=== PATIENT | female | born 1950 | race Caucasian/White ===

== ENCOUNTER 2016-12-16 16:12 | Observation (INO) | payer MEDICARE, BC ==
[~2016-12-16] VITALS: Ht 167.6 cm; Wt 70.0 kg
[~2016-12-16 16:12] MED LIST: ATEN-100 PO; DEXA6TAB PO; LOVA1TAB47 PO; OXYC-360 PO; PRIL20CA PO
[2016-12-16 16:30] VITALS: BP 163/77; PULSE 61; RESP 17; TEMP 98; O2SAT 97
[2016-12-16 16:35] VITALS: BP 163/77; PULSE 66; RESP 18; O2SAT 100
[2016-12-16] MEDS ORDERED: OMEP20TA PO (16:39)
[2016-12-16] MEDS ORDERED: ATEN25TA PO (16:39)
[2016-12-16] MEDS ORDERED: LISI-515 PO (16:39)
[2016-12-16] MEDS ORDERED: LOVA20TA PO (16:39)
[2016-12-16] MEDS ORDERED: SODIUM CHLORIDE 0.9% FLUSH 10 ML FLUSH IVF PRN (16:45)
--- NOTE | 2016-12-16 16:50 | PD ---
HPI Chief Complaint: Chest Pain Time Seen by Provider: 16:23 Travel History International Travel<30 days: No Contact w/Intl Traveler<30days: No Traveled to known affect area: No History of Present Illness HPI The patient is a 66-year-old female who presents to the emergency department for chest pain. The patient states she was lying in bed earlier today when she developed chest pain. The chest pain was located over the right aspect of her chest, just lateral to the sternum, radiated up to the right side of the jaw and right aspect of the neck. The patient notes her last several days she has felt a sensation to the right aspect of her face and her right arm that feels like "an air conditioner blowing on my face and arm ". The patient states the chest pain was sharp, lasted 20 minutes, there are no alleviating or exacerbating factors, and it was associated with mild shortness of breath. She did complain of mild nausea with a sensation to "burp", but denied any vomiting. She denied any diaphoresis. The patient does have a history of hypertension, hyperlipidemia, and significant family medical history for early CAD. The patient states her brother had a heart attack at age 31. The patient is never had a cardiac catheterization, had a treadmill stress test approximately 9 years ago. The patient denies any tobacco use, states she has a history of "borderline" diabetes. PFSH Past Medical History Cancer: Yes (TONGUE ) High Cholesterol: Yes Glaucoma: No Hepatitis: No Hiatal Hernia: No Hypertension: Yes Medical other: No Thyroid Disease: No ?: Not Past Surgical History Gynecologic Surgery: Yes (UNILAT. OOPHORECTOMY) Pacemaker: No Tonsillectomy: Yes Other Surgery: Yes (TONGUE SURGERY) Family History Family Myocardial Infarction: Yes Social History Alcohol Use: Yes (DAILY) Tobacco Use: Yes (QUIT 20 YRS) Substance Use: No Allergies-Medications (Allergen,Severity, Reaction): Coded Allergies: Penicillin (Unverified Allergy, Severe, 12/16/16) Reported Meds & Prescriptions Reported Meds & Active Scripts Active Reported Omeprazole 20 Mg Tab 20 Mg PO DAILY Lisinopril 20 Mg Tab 20 Mg PO DAILY Lovastatin 20 Mg Tab 20 Mg PO DAILY Atenolol 25 Mg Tab 25 Mg PO DAILY Review of Systems Except as stated in HPI: all other systems reviewed are Neg General / Constitutional: No: Fever HENT: No: Lightheadedness Cardiovascular: Positive: Chest Pain or Discomfort, No: Diaphoresis Respiratory: Positive: Shortness of Breath Gastrointestinal: Positive: Nausea, No: Vomiting Musculoskeletal: No: Weakness, Edema Neurologic: No: Dizziness Physical Exam Narrative GENERAL: Awake, alert, 66 year-old female who appears her stated age and is in no acute respiratory distress. SKIN: Focused skin assessment warm/dry. HEAD: Atraumatic. Normocephalic. EYES: Pupils equal and round. No scleral icterus. No injection or drainage. ENT: No nasal bleeding or discharge. Mucous membranes pink and moist. NECK: Trachea midline. No JVD. CARDIOVASCULAR: Regular rate and rhythm. No murmur appreciated. RESPIRATORY: No accessory muscle use. Clear to auscultation. Breath sounds equal bilaterally. GASTROINTESTINAL: Abdomen soft, non-tender, nondistended. No rebound tenderness. MUSCULOSKELETAL: No obvious deformities. No clubbing. No cyanosis. No edema. Positive right radial pulse. NEUROLOGICAL: Awake and alert. No obvious cranial nerve deficits. Motor grossly within normal limits. Normal speech. Sensation is symmetric on the face and arms bilaterally. PSYCHIATRIC: Appropriate mood and affect; insight and judgment normal. Data Data Last Documented VS Vital Signs Date Time Temp Pulse Resp B/P Pulse Ox O2 Delivery O2 Flow Rate FiO2 12/16/16 17:10 98 Room Air 12/16/16 17:10 20 12/16/16 16:35 66 12/16/16 16:35 163/77 12/16/16 16:30 98.0 Orders Electrocardiogram (12/16/16 ) Electrocardiogram (12/16/16 16:44) Ckmb (Isoenzyme) Profile (12/16/16 16:44) Complete Blood Count With Diff (12/16/16 16:44) Comprehensive Metabolic Panel (12/16/16 16:44) Magnesium (Mg) (12/16/16 16:44) Prothrombin Time / Inr (Pt) (12/16/16 16:44) Act Partial Throm Time (Ptt) (12/16/16 16:44) Troponin I (12/16/16 16:44) Lipase (12/16/16 16:44) Chest, Single Ap (12/16/16 16:44) Ecg Monitoring (12/16/16 16:44) Bilateral Bp Monitoring (12/16/16 16:44) Iv Access Insert/Monitor (12/16/16 16:44) Oximetry (12/16/16 16:44) Oxygen Administration (12/16/16 16:44) Sodium Chloride 0.9% Flush (Ns Flush) (12/16/16 16:45) CKMB (12/16/16 16:47) CKMB% (12/16/16 16:47) Admit Order (Ed Use Only) (12/16/16 18:03) Labs Laboratory Tests Test 12/16/16 16:47 White Blood Count 4.8 TH/MM3 Red Blood Count 4.61 MIL/MM3 Hemoglobin 13.5 GM/DL Hematocrit 40.0 % Mean Corpuscular Volume 86.7 FL Mean Corpuscular Hemoglobin 29.3 PG Mean Corpuscular Hemoglobin 33.8 % Concent Red Cell Distribution Width 13.4 % Platelet Count 236 TH/MM3 Mean Platelet Volume 7.9 FL Neutrophils (%) (Auto) 51.3 % Lymphocytes (%) (Auto) 37.0 % Monocytes (%) (Auto) 8.9 % Eosinophils (%) (Auto) 2.2 % Basophils (%) (Auto) 0.6 % Neutrophils # (Auto) 2.4 TH/MM3 Lymphocytes # (Auto) 1.8 TH/MM3 Monocytes # (Auto) 0.4 TH/MM3 Eosinophils # (Auto) 0.1 TH/MM3 Basophils # (Auto) 0.0 TH/MM3 CBC Comment DIFF FINAL Differential Comment Prothrombin Time 10.7 SEC Prothromb Time International 1.0 RATIO Ratio Activated Partial 29.9 SEC Thromboplast Time Sodium Level 139 MEQ/L Potassium Level 4.2 MEQ/L Chloride Level 101 MEQ/L Carbon Dioxide Level 27.7 MEQ/L Anion Gap 10 MEQ/L Blood Urea Nitrogen 12 MG/DL Creatinine 0.69 MG/DL Estimat Glomerular Filtration 85 ML/MIN Rate Random Glucose 88 MG/DL Calcium Level 9.8 MG/DL Magnesium Level 2.4 MG/DL Total Bilirubin 0.6 MG/DL Aspartate Amino Transf 22 U/L (AST/SGOT) Alanine Aminotransferase 30 U/L (ALT/SGPT) Alkaline Phosphatase 71 U/L Total Creatine Kinase 101 U/L Creatine Kinase MB 0.5 NG/ML Troponin I LESS THAN 0.02 NG/ML Total Protein 7.7 GM/DL Albumin 4.2 GM/DL Lipase 144 U/L Exceptions Acute Myocardial Infarction ASA Not Given on Arrival: Already Given by EMS MDM Medical Decision Making Medical Screen Exam Complete: Yes Emergency Medical Condition: Yes Medical Record Reviewed: Yes Interpretation(s) EKG reveals normal sinus rhythm with a rate of 66. No ischemic changes or ectopy noted. Last Impressions Chest X-Ray 12/16/16 1644 Signed Impressions: Service Date/Time: November 16:57 - CONCLUSION: No acute disease. Venancio Quezada MD Laboratory Tests Test 12/16/16 16:47 White Blood Count 4.8 TH/MM3 Red Blood Count 4.61 MIL/MM3 Hemoglobin 13.5 GM/DL Hematocrit 40.0 % Mean Corpuscular Volume 86.7 FL Mean Corpuscular Hemoglobin 29.3 PG Mean Corpuscular Hemoglobin 33.8 % Concent Red Cell Distribution Width 13.4 % Platelet Count 236 TH/MM3 Mean Platelet Volume 7.9 FL Neutrophils (%) (Auto) 51.3 % Lymphocytes (%) (Auto) 37.0 % Monocytes (%) (Auto) 8.9 % Eosinophils (%) (Auto) 2.2 % Basophils (%) (Auto) 0.6 % Neutrophils # (Auto) 2.4 TH/MM3 Lymphocytes # (Auto) 1.8 TH/MM3 Monocytes # (Auto) 0.4 TH/MM3 Eosinophils # (Auto) 0.1 TH/MM3 Basophils # (Auto) 0.0 TH/MM3 CBC Comment DIFF FINAL Differential Comment Prothrombin Time 10.7 SEC Prothromb Time International 1.0 RATIO Ratio Activated Partial 29.9 SEC Thromboplast Time Sodium Level 139 MEQ/L Potassium Level 4.2 MEQ/L Chloride Level 101 MEQ/L Carbon Dioxide Level 27.7 MEQ/L Anion Gap 10 MEQ/L Blood Urea Nitrogen 12 MG/DL Creatinine 0.69 MG/DL Estimat Glomerular Filtration 85 ML/MIN Rate Random Glucose 88 MG/DL Calcium Level 9.8 MG/DL Magnesium Level 2.4 MG/DL Total Bilirubin 0.6 MG/DL Aspartate Amino Transf 22 U/L (AST/SGOT) Alanine Aminotransferase 30 U/L (ALT/SGPT) Alkaline Phosphatase 71 U/L Total Creatine Kinase 101 U/L Creatine Kinase MB 0.5 NG/ML Troponin I LESS THAN 0.02 NG/ML Total Protein 7.7 GM/DL Albumin 4.2 GM/DL Lipase 144 U/L Differential Diagnosis Differential diagnosis includes ACS, angina, esophageal spasm, GERD, pulmonary embolism, neuropathy, biliary colic, pancreatitis, gastritis. Narrative Course IV was established, labs are drawn and sent, and the patient was placed on cardiac telemetry monitoring and continuous pulse oximetry monitoring. EKG was ordered and interpreted. Chest x-ray was obtained. The patient took aspirin prior to arrival by EMS and was pain-free upon arrival, therefore, no nitroglycerin sublingual was administered. The chest x-ray was unremarkable. EKG is unremarkable, no ischemic changes noted. Initial troponin is negative. Patient does have right sided chest pain that radiates to the right jaw and right arm, mild shortness of breath, and a history of hypertension, hyperlipidemia, and significant family medical history. Her symptoms were not exertional. As she does have atypical symptoms with multiple risk factors, patient will be 23 hour observation to [facility], she is a moderate risk candidate. The patient is comfortable with this plan of care. The patient will be kept nothing by mouth after midnight, serial cardiac enzymes will be ordered. Physician Communication Physician Communication The patient will be a 23 hour observation to the [facility] for serial cardiac enzymes and further evaluation by cardiology for possible stress test. Diagnosis Primary Impression: Chest pain Qualified Code: R07.9 - Chest pain, unspecified type Admitting Information Admitting Physician Requests: Observation Condition: Stable Iban Alvarado MD Dec 16, 2016 16:50
[2016-12-16 17:00] LABS: AUTOMATED NEUTROPHIL # 2.4 TH/MM3 (1.8-7.7); BASOPHIL % 0.6 % (0.0-2.0); EOSINOPHIL # 0.1 TH/MM3 (0-0.4); EOSINOPHIL % 2.2 % (0.0-4.0); HEMO FLAGS DIFF FINAL; LYMPHOCYTE # 1.8 TH/MM3 (1.0-4.8); MEAN CELL VOLUME 86.7 FL (80.0-100.0); MEAN CORPUSCULAR HEMOGLOBIN 29.3 PG (27.0-34.0); MEAN CORPUSCULAR HGB CONC 33.8 % (32.0-36.0); MONO % 8.9 % (0.0-8.0); NEUT % 51.3 % (16.0-70.0); PLATELET COUNT 236 TH/MM3 (150-450); RED BLOOD COUNT 4.61 MIL/MM3 (4.00-5.30); RED CELL DISTRIBUTION WIDTH 13.4 % (11.6-17.2); WHITE BLOOD COUNT 4.8 TH/MM3 (4.0-11.0)
[2016-12-16 17:10] VITALS: RESP 20; O2SAT 98
[2016-12-16 17:18] LABS: ALT (GPT) 30 U/L (10-53); ANION GAP 10 MEQ/L (5-15); AST (GOT) 22 U/L (15-37); BICARBONATE 27.7 MEQ/L (21.0-32.0); BLOOD UREA NITROGEN 12 MG/DL (7-18); CHLORIDE 101 MEQ/L (98-107); GLOMERULAR FILTRATION RATE 85 ML/MIN (>89); MAGNESIUM 2.4 MG/DL (1.5-2.5); POTASSIUM 4.2 MEQ/L (3.5-5.1); SODIUM (NA) 139 MEQ/L (136-145)
[2016-12-16 17:23] LABS: ALKALINE PHOSPHATASE 71 U/L (45-117); CREATINE KINASE 101 U/L (26-192); TOTAL BILIRUBIN ADULT 0.6 MG/DL (0.2-1.0)
[2016-12-16 17:28] LABS: APTT (PATIENT) 29.9 SEC (24.3-30.1); PROTHROMBIN TIME - PATIENT 10.7 SEC (9.8-11.6)
--- NOTE | 2016-12-16 17:31 | RADRPT ---
EXAM DATE/TIME: 12/16/2016 16:57 [facility] COMPARISON: No previous studies available for comparison. INDICATIONS : Chest pain MEDICAL HISTORY : None. SURGICAL HISTORY : None. ENCOUNTER: Initial ACUITY: 1 day PAIN SCORE: 0/10 LOCATION: Bilateral chest FINDINGS: A single view of the chest demonstrates the lungs to be symmetrically aerated without evidence of mas s, infiltrate or effusion. The cardiomediastinal contours are unremarkable. Osseous structures are intact. CONCLUSION: No acute disease. Venancio Quezada MD on December 16, 2016 at 17:29 Board Certified Radiologist. This report was verified electronically.
[2016-12-16 17:35] LABS: CKMB 0.5 NG/ML (0.5-3.6)
[2016-12-16] MEDS ORDERED: ACETAMINOPHEN 500 MG CPLT PO PRN (18:15)
[2016-12-16] MEDS ORDERED: SODIUM CHLORIDE 0.9% FLUSH 10 ML FLUSH IV FLUSH PRN (18:15)
[2016-12-16] MEDS ORDERED: ACETAMINOPHEN/HYDROcodone 325 MG/7.5 MG TAB PO PRN (18:15)
[2016-12-16] MEDS ORDERED: ONDANSETRON HCL 4 MG/2 ML VIAL IV PRN (18:15)
[2016-12-16] MEDS ORDERED: NITROGLYCERIN 0.4 MG SL 25 TABS/BTL SL PRN (18:15)
[2016-12-16] MEDS ORDERED: MORPHINE SULFATE 4 MG/ML INJ IV PRN (18:15)
[2016-12-16 18:26] VITALS: BP 132/72; PULSE 68; RESP 18; O2SAT 99
[2016-12-16 20:55] LABS: CREATINE KINASE 88 U/L (26-192)
--- NOTE | 2016-12-16 21:00 | EKG ---
Date Performed: 12/16/2016 Time Performed: 16:36:53 PTAGE: 66 years EKG: Sinus rhythm NORMAL ECG NO PREVIOUS TRACING DOCTOR: Ricardo Arzate Interpretating Date/Time 12/16/2016 20:59:20
[2016-12-16 21:32] VITALS: BP 140/80; PULSE 69; RESP 18; TEMP 98.1; O2SAT 97
[2016-12-17 00:55] VITALS: BP 133/76; PULSE 74; RESP 18; O2SAT 97
[2016-12-17 03:14] LABS: CREATINE KINASE 92 U/L (26-192)
[2016-12-17 03:47] VITALS: PULSE 68
[2016-12-17 06:07] VITALS: BP 135/73; PULSE 72; RESP 18; TEMP 97.6; O2SAT 97
[2016-12-17 08:15] VITALS: BP 124/57; PULSE 70; RESP 18; TEMP 97.5; O2SAT 95
[2016-12-17] MEDS ORDERED: PANTOPRAZOLE SOD 20 MG DELAYED RELEASE TAB PO SCH (09:00)
[2016-12-17] MEDS ORDERED: LISINOPRIL 20 MG TAB PO SCH (09:00)
[2016-12-17] MEDS: SODIUM CHLORIDE 0.9% FLUSH 10 ML FLUSH IV FLUSH SCH ×2 (09:00→10:36)
[2016-12-17] MEDS ORDERED: ATENOLOL 25 MG TAB PO SCH (09:00)
[2016-12-17] MEDS ORDERED: ASPIRIN 325 MG TAB PO SCH (09:00)
[2016-12-17] MEDS ORDERED: PRAVASTATIN SOD 20 MG TAB PO SCH (09:00)
--- NOTE | 2016-12-17 09:10 | HHI.HP ---
[facility] Primary Care Physician Moise Razo MD Chief Complaint Chest pain History of Present Illness This is a 66-year-old female that presents to ED via private vehicle to evaluate a right-sided chest discomfort that began yesterday. Patient states that she was awoken at 4:00 yesterday morning with a right-sided sharp chest discomfort. She had a numbing sensation that radiated up her right jaw and down the right arm. There were no weakness in her extremities. No difficulty with speech and she diagnosed any facial asymmetry. The symptoms lasted for 20 minutes and did not recur. She called her primary care physician Dr. Razo who advised her to go to the ED. Patient denies history of CAD. She has had a stress test in the past and states it is many years ago. discomforts. Review of Systems General: Patient denies fevers, chills recent, and recent travel HEENT: Patient denies headache, sore throat, difficulty swallowing. Cardiovascular: Has the chest discomfort as mentioned above. Denies sensation of heart beating rapidly or irregularly. No syncope. Respiratory: Patient was a little short of breath. Denies inspirational chest discomfort. Denies coughing wheezing or hemoptysis. GI: Patient denies nausea, vomiting, diarrhea, abdominal pain, bloody stools. Musculoskeletal: Patient denies joint pain or edema. Denies calf pain or edema. Neurovascular: Patient denies numbness, tingling, weakness in extremities. Denies headache. Endocrine: Denies polyuria and polydipsia. Hematologic: Denies easy bruising. Skin: Denies rash or itching. Past Family Social History Allergies: Coded Allergies: Penicillin (Unverified Allergy, Severe, 12/16/16) Past Medical History Hypertension, hyperlipidemia, GERD. Denies diabetes and CAD. Past Surgical History Oophorectomy, tonsillectomy, and surgery to her tongue to remove cancer. Reported Medications Reported Meds & Active Scripts Active Reported Omeprazole 20 Mg Tab 20 Mg PO DAILY Lisinopril 20 Mg Tab 20 Mg PO DAILY Lovastatin 20 Mg Tab 20 Mg PO DAILY Atenolol 25 Mg Tab 25 Mg PO DAILY Active Ordered Medications Current Medications Medications (Trade) Dose Ordered Sig/Chayo Route Start Time Stop Time Status Last Admin (NS Flush) 2 ml UNSCH PRN IV FLUSH 12/16/16 18:15 (NS Flush) 2 ml BID IV FLUSH 12/16/16 21:00 (Tylenol) 500 mg Q4H PRN PO 12/16/16 18:15 (Cidra 7.5-325 Mg) 1 tab Q4H PRN PO 12/16/16 18:15 (Morphine Inj) 2 mg Q4H PRN IV 12/16/16 18:15 (Zofran Inj) 4 mg Q6H PRN IV 12/16/16 18:15 (Nitrostat Sl) 0.4 mg Q5M PRN SL 12/16/16 18:15 (Aspirin) 325 mg DAILY PO 12/17/16 09:00 (Tenormin) 25 mg DAILY PO 12/17/16 09:00 (Prinivil) 20 mg DAILY PO 12/17/16 09:00 (Pravachol) 20 mg DAILY PO 12/17/16 09:00 (Protonix) 20 mg DAILY PO 12/17/16 09:00 Family History Her father at age 62 of a myocardial infarction. Social History Patient quit smoking 20 years ago. Prior to that she smoked 2 pack of cigarettes per week for about 15 years. She has on average a couple glasses of wine on weekends. Denies illicit drugs. She is retired. She is . Physical Exam Vital Signs Vital Signs Date Time Temp Pulse Resp B/P Pulse Ox O2 Delivery O2 Flow Rate FiO2 12/17/16 08:15 97.5 70 18 124/57 95 12/17/16 06:07 97.6 72 18 135/73 97 12/17/16 03:47 68 12/17/16 00:55 74 18 133/76 97 12/16/16 21:32 98.1 69 18 140/80 97 12/16/16 18:26 68 18 132/72 99 Room Air 12/16/16 17:10 98 Room Air 12/16/16 17:10 20 98 Room Air 12/16/16 16:35 66 18 99 Room Air 12/16/16 16:35 66 18 163/77 100 Room Air 12/16/16 16:30 98.0 61 17 163/77 97 Physical Exam GENERAL: This is a well-nourished, well-developed patient, in no apparent distress. Patient speaks in clear complete sentences. Patient is pleasant. HEENT: Head is atraumatic and normocephalic. Neck is supple without lymphadenopathy and trachea is midline. No JVD or carotid bruits. CARDIOVASCULAR: Regular rate and rhythm without murmurs, gallops, or rubs. RESPIRATORY: Clear to auscultation. Breath sounds equal bilaterally. No wheezes , rales, or rhonchi. Chest wall is nontender. No use of accessory muscles. GASTROINTESTINAL: Abdomen is nontender, nondistended. Abdomen soft. No obvious pulsatile mass or bruit. No CVA tenderness. Strong femoral pulses bilaterally. Normal bowel sounds in all quadrants. MUSCULOSKELETAL: Patient is moving upper and lower extremities freely. No calf tenderness or edema, no Homans sign. Strong pulses in upper and lower extremities. NEUROLOGICAL: Patient is alert and oriented. Cranial nerves 2-12 are grossly intact. No focal deficits and speech is clear. SKIN: No rash and turgor is normal. Laboratory Laboratory Tests Test 12/16/16 12/16/16 12/17/16 16:47 20:06 02:29 White Blood Count 4.8 Red Blood Count 4.61 Hemoglobin 13.5 Hematocrit 40.0 Mean Corpuscular Volume 86.7 Mean Corpuscular Hemoglobin 29.3 Mean Corpuscular Hemoglobin 33.8 Concent Red Cell Distribution Width 13.4 Platelet Count 236 Mean Platelet Volume 7.9 Neutrophils (%) (Auto) 51.3 Lymphocytes (%) (Auto) 37.0 Monocytes (%) (Auto) 8.9 Eosinophils (%) (Auto) 2.2 Basophils (%) (Auto) 0.6 Neutrophils # (Auto) 2.4 Lymphocytes # (Auto) 1.8 Monocytes # (Auto) 0.4 Eosinophils # (Auto) 0.1 Basophils # (Auto) 0.0 CBC Comment DIFF FINAL Differential Comment Prothrombin Time 10.7 Prothromb Time International 1.0 Ratio Activated Partial 29.9 Thromboplast Time Sodium Level 139 Potassium Level 4.2 Chloride Level 101 Carbon Dioxide Level 27.7 Anion Gap 10 Blood Urea Nitrogen 12 Creatinine 0.69 Estimat Glomerular Filtration 85 Rate Random Glucose 88 Calcium Level 9.8 Magnesium Level 2.4 Total Bilirubin 0.6 Aspartate Amino Transf 22 (AST/SGOT) Alanine Aminotransferase 30 (ALT/SGPT) Alkaline Phosphatase 71 Total Creatine Kinase 101 88 92 Creatine Kinase MB 0.5 Troponin I LESS THAN 0.02 LESS THAN 0.02 LESS THAN 0.02 Total Protein 7.7 Albumin 4.2 Lipase 144 Result Diagram: 12/16/16 1647 12/16/16 1647 Imaging Last Impressions Chest X-Ray 12/16/16 1644 Signed Impressions: Service Date/Time: , December 16, 2016 16:57 - CONCLUSION: No acute disease. Venancio Quezada MD Course EKGs have sinus rhythm without significant ST segment depressions or elevations. Assessment and Plan Assessment and Plan * Chest pain: Patient has had serial cardiac enzymes and EKGs for ruling out purposes. She has been seen by Dr. Cristiano Floyd of cardiology in the chest pain center and will undergo a Usman protocol ETT. She'll be discharged home if her stress test were to be unremarkable with instructions to follow-up with her primary care physician. * Hypertension: Continue current medication. * Hyperlipidemia: Continue current medication. * GERD: Continue current medication. Jose Joya Dec 17, 2016 09:10
--- NOTE | 2016-12-17 09:36 | HHI.DCPOC ---
Discharge Care Plan Diagnosis: (1) Chest pain (2) Hypertension (3) Hyperlipidemia Goals to Promote Your Health * To prevent worsening of your condition and complications * To maintain your health at the optimal level Directions to Meet Your Goals Take your medications as prescribed Follow your dietary instruction Follow activity as directed Keep your appointments as scheduled Take your immunizations and boosters as scheduled If your symptoms worsen call your PCP, if no PCP go to Urgent Care Center or Emergency Room Smoking is Dangerous to Your Health. Avoid second hand smoke Call the 24-hour hour crisis hotline for domestic abuse at Jose Joya Dec 17, 2016 09:36
--- NOTE | 2016-12-17 15:07 | EKG ---
Date Performed: 12/16/2016 Time Performed: 20:03:00 PTAGE: 66 years EKG: Sinus rhythm NORMAL ECG PREVIOUS TRACING : 12/16/2016 16.36 Since previous tracing, no significant change noted DOCTOR: Cristiano Floyd Interpretating Date/Time 12/17/2016 15:05:52
--- NOTE | 2016-12-17 15:10 | TR ---
Date Performed: 12/17/2016 Time Performed: 09:10:33 DOCTOR: Cristiano Floyd DRUG LIST: CLINICAL HISTORY: REASON FOR TEST: REASON FOR ENDING: OBSERVATION: CONCLUSION: AUDREY PROTOCOL. NO CP. TEST STOPPED AFTER EXCEEDING GOAL HR SECONDARY TO SOB ANDLEG FATIGUE.Maximum LG=946 % Max HR Achieved=87.0% Maximum AZ=150/76 Total Exercise Time=4:01 COMMENTS: Patient exercised using the Audrey protocol. No electrocardiographic changes were seen to suggest ischemia. Hemodynamic response to exercise was normal. No significant arrhythmia was prese nt.
== END 2016-12-17 11:54 | disposition home or self-care (01) ==
LOC: NEPE 16:12 → NEDA 18:05 → NEPFCDU 20:23
PROVIDERS: ADMIT Internal Medicine Interventional Cardiology; ATTEND Internal Medicine Interventional Cardiology
DX: R07.89 Other chest pain (principal); R06.02 Shortness of breath; I10 Essential (primary) hypertension; K21.9 Gastro-esophageal reflux disease without esophagitis; E78.5 Hyperlipidemia, unspecified; E78.00 Pure hypercholesterolemia, unspecified; Z85.810 Personal history of malignant neoplasm of tongue; Z87.891 Personal history of nicotine dependence; Z88.0 Allergy status to penicillin; Z82.49 Family history of ischemic heart disease and other diseases of the circulatory system
CPT/HCPCS: 71010; 80053; 82550; 82552; 83690; 83735; 84484; 85025; 85610; 85730; 93005; 93017; 99285; G0378